=== PATIENT | female | born 1985 | race Hispanic/Latino ===

== ENCOUNTER 2019-04-09 22:30 | Observation (INO) | payer OTHER ==
[~2019-04-09] VITALS: Ht 167.6 cm; Wt 77.1 kg
[2019-04-09 22:51] VITALS: BP 130/76
[2019-04-09] MEDS ORDERED: LACTATED RINGERS 1000ML IV PRN (23:00)
[2019-04-09 23:03] LABS: APPEARANCE,URINE Cloudy (CLEAR); BILIRUBIN,URINE Negative (NEGATIVE); COLOR,URINE Yellow (YELLOW); GLUCOSE, URINE (UA) Negative (NEGATIVE); KETONES,URINE Trace mg/dL (NEGATIVE); LEUKOCYTE ESTERASE ,URINE Large (NEGATIVE); NITRATE,URINE Negative (NEGATIVE); OCCULT BLOOD,URINE Negative (NEGATIVE); PROTEIN,URINE Negative (NEGATIVE); UROBILINOGEN,URINE 0.2 mg/dL (0.2-1.0)
[2019-04-09 23:19] LABS: BACTERIA,URINE Few /HPF (None Seen); RBC,URINE 0-1 /HPF (0-1); SQUAMOUS EPITHELIAL CELL,UR Moderate /HPF (0-2)
== END 2019-04-10 01:00 | disposition home or self-care (01) ==
LOC: EDH 22:30 → LDH 22:31
PROVIDERS: ADMIT Obstetrics & Gynecology; ATTEND Obstetrics & Gynecology
DX: O62.9 Abnormality of forces of labor, unspecified (principal); Z3A.38 38 weeks gestation of pregnancy
CPT/HCPCS: 81001; 99284; G0378 ×2

== ENCOUNTER 2021-03-04 16:41 | Inpatient (IN) | payer OTHER ==
[~2021-03-04] VITALS: Ht 167.6 cm; Wt 67.9 kg
[2021-03-04] MEDS ORDERED: 0.9%NACL 1000ML 1,000 ML IV SCH (17:00)
[2021-03-04] MEDS ORDERED: DEXAMETHASONE SOD PHOSPHATE 4 MG/ML 1ML VIAL IVP SCH (17:00)
[2021-03-04 17:47] LABS: BASOPHILS % (AUTO) 0.2 % (0.0-5.0); EOSINOPHILS % (AUTO) 0.1 % (0.0-8.0); HEMATOCRIT 36.2 % (36-48); LYMPHOCYTES % (AUTO) 11.8 % (21.0-51.0); MEAN CORPUSCULAR HEMOGLOBIN 29.1 pg (27.0-33.0); MEAN CORPUSCULAR HGB CONC 32.6 g/dL (32.0-36.0); MEAN CORPUSCULAR VOLUME 89.2 fL (79-99); MONOCYTES % (AUTO) 4.4 % (3.0-13.0); NEUTROPHILS % (AUTO) 83.3 % (40.0-77.0); PLATELET COUNT (AUTO) 269 K/uL (130-400); RED BLOOD CELL COUNT(AUTO) 4.06 MIL/uL (4.00-5.50); RED CELL DISTRIBUTION WIDTH 14.8 % (11.0-15.5); WHITE BLOOD COUNT (AUTO) 8.6 K/uL (4.8-10.8)
[2021-03-04 17:57] LABS: CREATININE 0.8 mg/dL (0.5-1.5)
[2021-03-04 17:59] LABS: INR 0.94 (0.85-1.15); PROTHROMBIN TIME 10.3 SEC (9.6-11.6)
[2021-03-04] MEDS: DEXAMETHASONE SOD PHOSPHATE 4 MG/ML 1ML VIAL IVP SCH ×2 (18:00→23:59)
[2021-03-04 18:01] LABS: ALBUMIN 3.9 g/dL (3.5-5.0); BILIRUBIN,TOTAL 0.4 mg/dL (0.2-1.0); TOTAL PROTEIN, SERUM 7.5 g/dL (6.0-8.3)
[2021-03-04 23:25] VITALS: BP 130/78
[2021-03-05] VITALS (13 sets, daily range): BP systolic 101–148; BP diastolic 59–94
[2021-03-05] MEDS: DEXAMETHASONE SOD PHOSPHATE 4 MG/ML 1ML VIAL IVP SCH ×4 (05:22→23:50)
[2021-03-05] MEDS: PANTOPRAZOLE 40 MG TAB DR PO SCH (07:32)
[2021-03-05] MEDS ORDERED: LIDOCAINE PF 100MG/5ML (2%) SYRINGE 5ML ONE (08:48)
[2021-03-05] MEDS ORDERED: SUCCINYLCHOLINE CHLORIDE 20 MG/ML 10 ML VIAL ONE (08:48)
[2021-03-05] MEDS ORDERED: PROPOFOL 10 MG/ML 20ML VIAL IV ONE (08:48)
[2021-03-05] MEDS ORDERED: GLYCOPYRROLATE 1 MG/5 ML SYRINGE ONE (08:49)
[2021-03-05] MEDS ORDERED: ROCURONIUM 10MG/1ML SYR 10 MG/ML ML ONE ×2 (08:49→12:50)
[2021-03-05] MEDS ORDERED: DEXAMETHASONE SOD PHOSPHATE 10MG/ML 1ML VIAL ONE ×2 (08:49→13:16)
[2021-03-05] MEDS ORDERED: MIDAZOLAM HCL 1 MG/ML 2ML VIAL ONE (08:49)
[2021-03-05] MEDS ORDERED: ONDANSETRON 4MG INJ ONE ×2 (08:49→16:12)
[2021-03-05] MEDS ORDERED: NEOSTIGMINE 5MG/5ML SYR IV ONE ×2 (08:49→15:38)
[2021-03-05] MEDS ORDERED: FENTANYL CITRATE PF 50 MCG/1 ML 2ML VIAL ONE ×3 (08:50→15:46)
[2021-03-05] MEDS ORDERED: PHENYLEPHRINE HCL 10 MG/ML 1ML VIAL IV ONE (08:51)
[2021-03-05] MEDS ORDERED: CEFAZOLIN SODIUM 1 GM VIAL ONE ×3 (10:07→14:07)
[2021-03-05] MEDS ORDERED: THROMBIN-JMI 20000 UNIT KIT TP ONE (11:17)
[2021-03-05] MEDS ORDERED: BUPIVACAINE/EPI/PF 0.25% 30ML VIAL IJ ONE (11:17)
[2021-03-05] MEDS: CEFAZOLIN SODIUM 1 GM VIAL ONE ×2 (12:00→12:30)
[2021-03-05] MEDS ORDERED: FENTANYL CITRATE PF 50 MCG/1 ML 5ML AMP IV ONE ×2 (12:51→14:11)
[2021-03-05] MEDS ORDERED: ROCURONIUM BROMIDE 10MG/1ML 5ML VL ONE (14:05)
[2021-03-05] MEDS ORDERED: PROPOFOL 1000 MG/100 ML 100 ML IV ONE (15:32)
[2021-03-05] MEDS ORDERED: SUGAMMADEX SODIUM 200 MG/2 ML VIAL IV ONE (15:42)
[2021-03-05] MEDS: MORPHINE 2 MG SYG IVP PRN ×2 (16:50→23:28)
[2021-03-05] MEDS: LACTATED RINGERS 1000ML 1,000 ML IV SCH (16:50)
[2021-03-05] MEDS ORDERED: KETOROLAC 15MG/ML VIAL (15MG/ML) ONE (17:12)
[2021-03-05] MEDS: KETOROLAC 15MG/ML VIAL (15MG/ML) IV PRN ×2 (17:20→23:50)
[2021-03-05] MEDS: CEFAZOLIN SODIUM 1 GM VIAL IVP SCH ×2 (17:28→23:50)
[2021-03-06] VITALS (10 sets, daily range): BP systolic 117–133; BP diastolic 62–92
[2021-03-06] MEDS: DEXAMETHASONE SOD PHOSPHATE 4 MG/ML 1ML VIAL IVP SCH ×4 (06:18→23:39)
[2021-03-06] MEDS: LACTATED RINGERS 1000ML 1,000 ML IV SCH ×2 (06:18→18:40)
[2021-03-06] MEDS: KETOROLAC 15MG/ML VIAL (15MG/ML) IV PRN ×3 (06:19→20:35)
[2021-03-06] MEDS: PANTOPRAZOLE 40 MG TAB DR PO SCH (09:27)
[2021-03-07] VITALS: BP 119/72
[2021-03-07 03:56] VITALS: BP 116/78
[2021-03-07] MEDS: LACTATED RINGERS 1000ML 1,000 ML IV SCH (05:57)
[2021-03-07] MEDS: DEXAMETHASONE SOD PHOSPHATE 4 MG/ML 1ML VIAL IVP SCH (05:57)
[2021-03-07] MEDS ORDERED: BENZOCAINE/MENTH/CETYLPYRD CL 1 EACH LOZENGE MM PRN (08:00)
[2021-03-07 08:10] VITALS: BP 113/81
[2021-03-07] MEDS: PANTOPRAZOLE 40 MG TAB DR PO SCH (08:19)
[2021-03-07] MEDS: KETOROLAC 15MG/ML VIAL (15MG/ML) IV PRN (08:20)
[2021-03-07 10:39] VITALS: BP 114/68
== END 2021-03-07 12:59 | disposition home or self-care (01) | DRG 27 ==
LOC: EDH 16:54 → EEVIPCON 16:55 → EDHIP 16:55 → 2DH 22:15 → 4BH 03-06 14:23
PROVIDERS: ADMIT Internal Medicine Hematology & Oncology; ATTEND Internal Medicine Hematology & Oncology
PROC: 00BC0ZZ Excision of Cerebellum, Open Approach (ICD-10-PCS; principal; 2021-03-05 11:15)
DX: C79.31 Secondary malignant neoplasm of brain (principal); C50.919 Malignant neoplasm of unspecified site of unspecified female breast; Z20.822 Contact with and (suspected) exposure to COVID-19; Z17.1 Estrogen receptor negative status [ER-]; Z85.3 Personal history of malignant neoplasm of breast; Z83.3 Family history of diabetes mellitus
CPT/HCPCS: 36415; 71045; 76998; 80053; 84703; 85025; 85610; 87635; 93005; 93313; 97039; G0378; J0330; J0690; J1100; J1885; J2001; J2250; J2370; J2405; J2704; J2710; J3010; J3490; J7030; J7120

== ENCOUNTER 2022-03-01 10:08 | Observation (INO) | payer OTHER ==
[~2022-03-01] VITALS: Ht 167.6 cm; Wt 60.8 kg
[2022-03-01 11:31] LABS: BASOPHILS % (AUTO) 0.4 % (0.0-5.0); EOSINOPHILS % (AUTO) 1.5 % (0.0-8.0); HEMATOCRIT 29.4 % (36-48); LYMPHOCYTES % (AUTO) 18.3 % (21.0-51.0); MEAN CORPUSCULAR HEMOGLOBIN 28.9 pg (27.0-33.0); MEAN CORPUSCULAR HGB CONC 32.3 g/dL (32.0-36.0); MEAN CORPUSCULAR VOLUME 89.4 fL (79-99); MONOCYTES % (AUTO) 6.5 % (3.0-13.0); NEUTROPHILS % (AUTO) 72.9 % (40.0-77.0); PLATELET COUNT (AUTO) 217 K/uL (130-400); RED BLOOD CELL COUNT(AUTO) 3.29 MIL/uL (4.00-5.50); RED CELL DISTRIBUTION WIDTH 14.9 % (11.0-15.5); WHITE BLOOD COUNT (AUTO) 4.6 K/uL (4.8-10.8)
[2022-03-01 11:39] LABS: CARBON DIOXIDE 28 mmol/L (21-32); CHLORIDE 107 mmol/L (101-111); CREATININE 0.6 mg/dL (0.5-1.5); GLOMERULAR FILTR. RATE CALC 120 mL/min (>60); GLUCOSE,RANDOM 91 mg/dL (70-105); POTASSIUM 3.9 mmol/L (3.5-5.1); SODIUM SERUM 140 mmol/L (136-145); UREA NITROGEN, BLOOD 15 mg/dL (7-18)
[2022-03-01 11:43] LABS: ALANINE AMINOTRANSFERASE 29 U/L (12-78); ALBUMIN 3.6 g/dL (3.5-5.0); ASPARTATE AMINOTRANSFERASE 18 U/L (10-37); PHENYTOIN (DILANTIN) 0.5 mcg/mL (10.0-20.0); TOTAL PROTEIN, SERUM 6.9 g/dL (6.0-8.3)
[2022-03-01 11:53] LABS: VALPROIC ACID < 3 mcg/mL (50-100)
[2022-03-01] MEDS ORDERED: 0.9%NACL 1000ML 1,000 ML IV SCH (14:30)
[2022-03-01] MEDS ORDERED: ONDANSETRON 4MG INJ IVP PRN (14:30)
[2022-03-01] MEDS: DEXAMETHASONE SOD PHOSPHATE 4 MG/ML 1ML VIAL IV SCH ×2 (15:19→20:28)
[2022-03-01] MEDS: LEVETIRACETAM 250 MG TABLET PO SCH (21:20)
[2022-03-01 21:35] VITALS: BP 116/70
[2022-03-01] MEDS ORDERED: TRAM50TA4 PO (22:20)
[2022-03-01] MEDS ORDERED: IRON150C5 PO (22:20)
[2022-03-01] MEDS ORDERED: LEVE500T19 PO (22:20)
[2022-03-01 23:50] VITALS: BP 98/62
[2022-03-02] MEDS: DEXAMETHASONE SOD PHOSPHATE 4 MG/ML 1ML VIAL IV SCH ×4 (01:43→21:23)
[2022-03-02 04:12] VITALS: BP 101/66
[2022-03-02 08:00] VITALS: BP 101/60
[2022-03-02] MEDS: LEVETIRACETAM 250 MG TABLET PO SCH ×2 (08:44→21:23)
[2022-03-02] MEDS: PANTOPRAZOLE 40 MG TAB DR PO SCH (09:03)
[2022-03-02 11:55] VITALS: BP 100/63
[2022-03-02] MEDS ORDERED: IOHEXOL 350 MG/ML 100ML INFUS..BTL IV ONE (15:54)
[2022-03-02 16:00] VITALS: BP 106/67
[2022-03-02 20:00] VITALS: BP 104/60
[2022-03-02 23:46] VITALS: BP 98/66
[2022-03-03] MEDS: DEXAMETHASONE SOD PHOSPHATE 4 MG/ML 1ML VIAL IV SCH (03:40)
[2022-03-03 04:16] VITALS: BP 121/72
[2022-03-03 08:00] VITALS: BP 99/56
[2022-03-03] MEDS: PANTOPRAZOLE 40 MG TAB DR PO SCH (09:03)
[2022-03-03] MEDS: LEVETIRACETAM 250 MG TABLET PO SCH (09:04)
[2022-03-03 12:00] VITALS: BP 96/61
== END 2022-03-03 13:15 | disposition home or self-care (01) ==
LOC: EDH 10:08 → EDHIP 14:25 → 4DH 21:37
PROVIDERS: ADMIT Internal Medicine Hematology & Oncology; ATTEND Internal Medicine Hematology & Oncology
DX: C79.31 Secondary malignant neoplasm of brain (principal); R56.9 Unspecified convulsions; C50.919 Malignant neoplasm of unspecified site of unspecified female breast; G93.5 Compression of brain; G93.6 Cerebral edema; G93.89 Other specified disorders of brain; Z85.3 Personal history of malignant neoplasm of breast; Z85.841 Personal history of malignant neoplasm of brain; Z90.13 Acquired absence of bilateral breasts and nipples; Z98.2 Presence of cerebrospinal fluid drainage device; Z98.891 History of uterine scar from previous surgery; Z79.899 Other long term (current) drug therapy; Z98.890 Other specified postprocedural states
CPT/HCPCS: 96374; 96376 ×3; 99284; 80164; 80185; 80053; 85025; 36415 ×2; 70450; 96375; 84703; 70460; G0378 ×46; J7030; J1100 ×7; J2405; Q9967